=== PATIENT | female | born 1970 | race Caucasian/White ===

== ENCOUNTER 2021-02-21 11:45 | Emergency (ER) | payer MEDICARE ==
[2021-02-21 13:15] LABS: HEMOGLOBIN 14.6 gm/dl (12.3-15.3); RED BLOOD COUNT 4.77 M/UL (4.00-5.10); WHITE BLOOD COUNT 8.9 K/UL (4.5-11.0)
[2021-02-21 13:22] LABS: BUN/CREATININE RATIO 18 (0-10)
[2021-02-21] MEDS ORDERED: PHENERGAN 25 MG25 M1 PO (18:16)
[2021-02-21] MEDS ORDERED: ONDANSETRON ODT4 MG SL (18:16)
[2021-02-21] MEDS ORDERED: CEFUROXIME500 MG PO (18:16)
[2021-02-21] MEDS ORDERED: CIPRO500 MG PO (18:25)
== END 2021-02-21 18:35 | disposition home or self-care (01) ==
LOC: ER1 11:45
PROVIDERS: Physician Assistant
DX: R51.9 Headache, unspecified (principal); N39.0 Urinary tract infection, site not specified; R19.7 Diarrhea, unspecified; E11.9 Type 2 diabetes mellitus without complications; E03.9 Hypothyroidism, unspecified; Z90.49 Acquired absence of other specified parts of digestive tract; Z90.710 Acquired absence of both cervix and uterus; Z88.1 Allergy status to other antibiotic agents; Z20.822 Contact with and (suspected) exposure to COVID-19
CPT/HCPCS: 0240U; 70450; 71045; 80053; 81001; 83690; 85025; 87086; 96374; 96375; 99284; J1200; J1885; J2765; J7030

== ENCOUNTER → 2021-09-14 | Outpatient (CLI) | payer MEDICARE ==
[~2021-09-14] MED LIST: BUSPAR 10MG10 MG PO; CEFUROXIME500 MG PO; CIPRO500 MG PO; CYCLOBENZAPRINE10 MG PO; CYMBALTA 30 MG30 MG PO; FUROSEMIDE20 MG PO; GLIPIZIDE10 MG PO; HYDROCODON-ACE1 EAC2 PO; HYDROCODONE-AC1 EACH PO; JARDIANCE25 MG PO; LEVEMIR; LEVOCETIRIZINE D5 MG PO; LEVOTHYROXINE25 MC1 PO; LIPITOR TAB 2020 MG PO; LOSARTAN POTASS50 MG PO; LYRICA200 MG PO; MELOXICAM15 MG PO; METFORMIN HCL1000 MG PO; ONDANSETRON ODT4 MG SL; OXCARBAZEPINE300 MG PO; PHENERGAN 25 MG25 M1 PO; RELPAX40 MG PO; ROBAXIN 750 MG750 MG PO; VITAMIN D21250 MCG PO; ZOLOFT50 MG PO
[2021-09-14 11:58] LABS: BUN/CREATININE RATIO 38 (0-10)
== END ==
LOC: OPSV2 09-10 09:00
PROVIDERS: Orthopaedic Surgery
DX: Z01.812 Encounter for preprocedural laboratory examination (principal); G56.02 Carpal tunnel syndrome, left upper limb
CPT/HCPCS: 36415; 80048

== ENCOUNTER → 2021-09-17 | Day surgery (SDC) | payer MEDICARE ==
[~2021-09-17] VITALS: Ht 175.3 cm; Wt 115.7 kg
== END | disposition home or self-care (01) ==
LOC: OR 05:51
PROVIDERS: Orthopaedic Surgery
PROC: 01N50ZZ Release Median Nerve, Open Approach (ICD-10-PCS; principal; 2021-09-17 10:00)
DX: G56.02 Carpal tunnel syndrome, left upper limb (principal); I10 Essential (primary) hypertension; E78.5 Hyperlipidemia, unspecified; E11.40 Type 2 diabetes mellitus with diabetic neuropathy, unspecified; M54.12 Radiculopathy, cervical region; E03.9 Hypothyroidism, unspecified; M79.7 Fibromyalgia; M19.90 Unspecified osteoarthritis, unspecified site; E66.9 Obesity, unspecified; Z20.822 Contact with and (suspected) exposure to COVID-19; Z79.84 Long term (current) use of oral hypoglycemic drugs; Z79.4 Long term (current) use of insulin; Z79.891 Long term (current) use of opiate analgesic; Z79.1 Long term (current) use of non-steroidal anti-inflammatories (NSAID); Z79.899 Other long term (current) drug therapy; Z88.1 Allergy status to other antibiotic agents
CPT/HCPCS: 82962; J0690; J1100; J1885; J2001; J2250; J2370; J2405; J2704; J3010; J7030; J7120

== ENCOUNTER 2021-11-15 12:04 | Emergency (ER) | payer MEDICARE ==
[2021-11-15] MEDS ORDERED: CEPHALEXIN500 M1 PO (12:57)
[2021-11-15] MEDS ORDERED: CEPHALEXIN500 MG PO (13:11)
== END 2021-11-15 13:12 | disposition home or self-care (01) ==
LOC: ER1 12:04
DX: E11.621 Type 2 diabetes mellitus with foot ulcer (principal); E11.620 Type 2 diabetes mellitus with diabetic dermatitis; L97.529 Non-pressure chronic ulcer of other part of left foot with unspecified severity; I10 Essential (primary) hypertension
CPT/HCPCS: 99283

== ENCOUNTER → 2021-11-20 | Outpatient (CLI) | payer MEDICARE ==
[~2021-11-20] MED LIST changes: +CEPHALEXIN500 M1 PO; +CEPHALEXIN500 MG PO
== END ==
LOC: KOH-I 10-23 13:00
DX: M51.16 Intervertebral disc disorders with radiculopathy, lumbar region (principal); M51.17 Intervertebral disc disorders with radiculopathy, lumbosacral region
CPT/HCPCS: 72148

== ENCOUNTER → 2021-11-24 | Outpatient (CLI) | payer MEDICARE | LOC: KOH-I 13:33 | DX: M79.605 Pain in left leg (principal) | CPT/HCPCS: 93971 ==

== ENCOUNTER → 2022-05-10 | Outpatient (CLI) | payer MEDICARE, OTHER | END | disposition home or self-care (01) | LOC: WCC 08:15 | PROC: 0JBR0ZZ Excision of Left Foot Subcutaneous Tissue and Fascia, Open Approach (ICD-10-PCS; principal; 2022-05-10) | DX: S91.312A Laceration without foreign body, left foot, initial encounter (principal); E11.621 Type 2 diabetes mellitus with foot ulcer; L97.422 Non-pressure chronic ulcer of left heel and midfoot with fat layer exposed; I10 Essential (primary) hypertension; M19.90 Unspecified osteoarthritis, unspecified site; E11.40 Type 2 diabetes mellitus with diabetic neuropathy, unspecified; M79.7 Fibromyalgia; R25.1 Tremor, unspecified; L84 Corns and callosities; E66.01 Morbid (severe) obesity due to excess calories; Z68.34 Body mass index [BMI] 34.0-34.9, adult; Z88.1 Allergy status to other antibiotic agents; X58.XXXA Exposure to other specified factors, initial encounter ==

== ENCOUNTER → 2022-05-10 | Outpatient (CLI) | payer MEDICARE, OTHER | LOC: RAD 15:59 | DX: E11.621 Type 2 diabetes mellitus with foot ulcer (principal); L97.529 Non-pressure chronic ulcer of other part of left foot with unspecified severity; E66.01 Morbid (severe) obesity due to excess calories; E11.40 Type 2 diabetes mellitus with diabetic neuropathy, unspecified; M79.89 Other specified soft tissue disorders | CPT/HCPCS: 73630 ==

== ENCOUNTER → 2022-05-17 | Outpatient (CLI) | payer MEDICARE, OTHER | END | disposition home or self-care (01) | LOC: WCC 07:27 | PROC: 0JBR0ZZ Excision of Left Foot Subcutaneous Tissue and Fascia, Open Approach (ICD-10-PCS; principal; 2022-05-17) | DX: S91.312A Laceration without foreign body, left foot, initial encounter (principal); E11.621 Type 2 diabetes mellitus with foot ulcer; L97.422 Non-pressure chronic ulcer of left heel and midfoot with fat layer exposed; E11.52 Type 2 diabetes mellitus with diabetic peripheral angiopathy with gangrene; I96 Gangrene, not elsewhere classified; E11.40 Type 2 diabetes mellitus with diabetic neuropathy, unspecified; I10 Essential (primary) hypertension; L84 Corns and callosities; E66.01 Morbid (severe) obesity due to excess calories; Z68.34 Body mass index [BMI] 34.0-34.9, adult; Z79.2 Long term (current) use of antibiotics; Z79.84 Long term (current) use of oral hypoglycemic drugs; Z79.899 Other long term (current) drug therapy; Z88.1 Allergy status to other antibiotic agents; X58.XXXA Exposure to other specified factors, initial encounter ==